=== PATIENT | female | born 1990 | race Caucasian/White ===

== ENCOUNTER 2017-01-03 12:44 | Emergency (ER) | payer BC, OTHER ==
--- NOTE | 2017-01-03 14:31 | RAD ---
TWO VIEW CHEST: Comparison: None. Indication: Chest pain. FINDINGS: Lungs are clear. No effusion or pneumothorax. Cardiac silhouette is normal sized. IMPRESSION: No focal consolidation. POS: [id number]
== END 2017-01-03 14:14 | disposition home or self-care (01) ==
LOC: MADERS 12:44
DX: M94.0 Chondrocostal junction syndrome [Tietze] (principal); F41.9 Anxiety disorder, unspecified
CPT/HCPCS: 71020; 93005